=== PATIENT | female | born 1970 | race Caucasian/White ===

== ENCOUNTER 2018-01-20 05:33 | Inpatient (IN) | payer OTHER ==
[2018-01-20] MEDS ORDERED: NEOSTIGMINE 3 MG/3 ML SYRINGE (07:28)
[2018-01-20] MEDS ORDERED: ROCURONIUM 50 MG INJ (07:28)
[2018-01-20] MEDS ORDERED: LIDOCAINE 2% (SDV) 5 ML INJ (07:28)
[2018-01-20] MEDS ORDERED: SUCCINYLCHOLINE CHLORIDE 100 MG/5 ML SYG IV (07:28)
[2018-01-20] MEDS ORDERED: MEPERIDINE 100 MG INJ (07:28)
[2018-01-20] MEDS ORDERED: GLYCOPYRROLATE 0.4 MG INJ ×2 (07:28→07:38)
[2018-01-20] MEDS ORDERED: PROPOFOL 20 ML (07:28)
[2018-01-20] MEDS ORDERED: CEFAZOLIN 1 GM INJ (07:38)
[2018-01-20] MEDS ORDERED: ONDANSETRON 4 MG INJ (07:58)
[2018-01-20] MEDS ORDERED: METOCLOPRAMIDE 10 MG INJ (07:58)
[2018-01-20] MEDS ORDERED: DIPHENHYDRAMINE 50 MG INJ IV (08:30)
[2018-01-20] MEDS ORDERED: HYDROmorphONE 1 MG/5 ML IV SYRINGE IV (08:30)
[2018-01-20] MEDS ORDERED: LABETALOL HCL 20MG INJ IV (08:30)
[2018-01-20] MEDS ORDERED: hydrALAzine 20 MG INJ IV (08:30)
[2018-01-20] MEDS ORDERED: MIDAZOLAM 1 MG/ML 2 ML INJ IV (08:30)
[2018-01-20] MEDS ORDERED: MEPERIDINE 25 MG INJ IV (08:30)
[2018-01-20] MEDS ORDERED: FENTAnyl 50 MCG/ML VIAL IV ×3 (08:30)
[2018-01-20] MEDS ORDERED: OXYCODONE/ACETAMINOPHEN (5/325) TAB PO ×2 (08:30→15:00)
[2018-01-20] MEDS ORDERED: METOCLOPRAMIDE 10 MG INJ IV (08:30)
[2018-01-20] MEDS ORDERED: EPHEDrine SULFATE 50 MG/5 ML SYG IV (08:30)
[2018-01-20 08:55] LABS: IMMEDIATE SPIN CROSSMATCH 1 3
[2018-01-20] MEDS: ONDANSETRON 4 MG INJ IV (09:45)
[2018-01-20] MEDS: HYDROmorphONE 1 MG/5 ML IV SYRINGE IV ×2 (09:46→10:06)
[2018-01-20] MEDS: OXYCODONE/ACETAMINOPHEN (5/325) TAB PO ×4 (11:43→21:30)
[2018-01-21 05:15] LABS: ADD MAN DIFF? NO
[2018-01-21 05:20] LABS: BASOPHILS % 0.4 % (0.0-2.0); HEMATOCRIT 26.1 % (37.0-47.0); HEMOGLOBIN 7.6 g/dl (12.0-16.0); LYMPHOCYTES # 1.1 10^3/ul (0.8-2.9); LYMPHOCYTES % 13.2 % (15.0-51.0); MEAN CORPUSCULAR HEMOGLOBIN 20.9 pg (29.0-33.0); MEAN CORPUSCULAR HGB CONC 29.1 g/dl (32.0-37.0); MEAN CORPUSCULAR VOLUME 71.7 fl (82.0-101.0); MONOCYTE # 0.6 10^3/ul (0.3-0.9); MONOCYTES % 6.4 % (0.0-11.0); NEUTROPHIL # 6.8 10^3/ul (1.6-7.5); NEUTROPHILS % 79.5 % (39.0-77.0); PLATELET COUNT 312 10^3/UL (140-415); RED BLOOD COUNT 3.64 10^6/ul (4.20-5.40); RED CELL DISTRIBUTION WIDTH 18.8 % (11.5-14.5)
[2018-01-21 05:20] LABS: WHITE BLOOD COUNT 8.5 10^3/ul (4.8-10.8)
[2018-01-21] MEDS: BISACODYL 10 MG SUPP PR ×2 (06:31→15:24)
[2018-01-21] MEDS: MAGNESIUM HYDROXIDE 30ML CUP PO ×2 (06:31→15:25)
[2018-01-21 06:45] LABS: ALANINE AMINOTRANSFERASE 29 IU/L (13-69); ALBUMIN 3.2 g/dl (3.3-4.9); ALKALINE PHOSPHATASE 88 IU/L (42-121); ANION GAP 14 (8-16); ASPARTATE AMINO TRANSFERASE 38 IU/L (15-46); BILIRUBIN,INDIRECT 1.3 mg/dl (0-1.1); BILIRUBIN,TOTAL 1.3 mg/dl (0.2-1.3); BLOOD UREA NITROGEN 5 mg/dl (7-20); CARBON DIOXIDE 23 mmol/L (21-31); CHLORIDE 106 mmol/L (97-110); CREATININE 0.56 mg/dl (0.44-1.00); GLUCOSE 119 mg/dl (70-220); POTASSIUM 3.5 mmol/L (3.5-5.1); SODIUM 139 mmol/L (135-144); TOTAL PROTEIN 6.1 g/dl (6.1-8.1)
[2018-01-21] MEDS ORDERED: OXYCODONE/ACETAMINOPHEN (5/325) TAB PO ×3 (09:30)
[2018-01-21] MEDS: OXYCODONE/ACETAMINOPHEN (5/325) TAB PO ×4 (09:54→21:18)
[2018-01-21] MEDS: ONDANSETRON 4 MG INJ IV (15:25)
[2018-01-21 17:26] LABS: ADD MAN DIFF? NO
[2018-01-21 17:29] LABS: WHITE BLOOD COUNT 10.2 10^3/ul (4.8-10.8)
[2018-01-21 17:29] LABS: BASOPHILS % 0.2 % (0.0-2.0); HEMATOCRIT 30.5 % (37.0-47.0); HEMOGLOBIN 9.3 g/dl (12.0-16.0); LYMPHOCYTES # 0.6 10^3/ul (0.8-2.9); MEAN CORPUSCULAR HEMOGLOBIN 22.3 pg (29.0-33.0); MEAN CORPUSCULAR HGB CONC 30.5 g/dl (32.0-37.0); MEAN CORPUSCULAR VOLUME 73.1 fl (82.0-101.0); MEAN PLATELET VOLUME 9.2 fl (7.4-10.4); MONOCYTE # 0.6 10^3/ul (0.3-0.9); MONOCYTES % 5.8 % (0.0-11.0); NEUTROPHIL # 8.9 10^3/ul (1.6-7.5); NEUTROPHILS % 87.1 % (39.0-77.0); NUCLEATED RED BLOOD CELLS% 0.3 /100WBC (0.0-0.0); PLATELET COUNT 278 10^3/UL (140-415); RED BLOOD COUNT 4.17 10^6/ul (4.20-5.40); RED CELL DISTRIBUTION WIDTH 18.1 % (11.5-14.5)
[2018-01-22 05:38] LABS: ADD MAN DIFF? NO
[2018-01-22 06:05] LABS: WHITE BLOOD COUNT 10.2 10^3/ul (4.8-10.8)
[2018-01-22 06:05] LABS: BASOPHILS % 0.3 % (0.0-2.0); HEMATOCRIT 29.5 % (37.0-47.0); HEMOGLOBIN 8.9 g/dl (12.0-16.0); LYMPHOCYTES # 0.9 10^3/ul (0.8-2.9); LYMPHOCYTES % 8.7 % (15.0-51.0); MEAN CORPUSCULAR HEMOGLOBIN 22.2 pg (29.0-33.0); MEAN CORPUSCULAR HGB CONC 30.2 g/dl (32.0-37.0); MEAN CORPUSCULAR VOLUME 73.6 fl (82.0-101.0); MEAN PLATELET VOLUME 10.2 fl (7.4-10.4); MONOCYTE # 0.6 10^3/ul (0.3-0.9); MONOCYTES % 5.5 % (0.0-11.0); NEUTROPHIL # 8.7 10^3/ul (1.6-7.5); NEUTROPHILS % 85.1 % (39.0-77.0); NUCLEATED RED BLOOD CELLS% 0.2 /100WBC (0.0-0.0); PLATELET COUNT 298 10^3/UL (140-415); RED BLOOD COUNT 4.01 10^6/ul (4.20-5.40); RED CELL DISTRIBUTION WIDTH 18.6 % (11.5-14.5)
[2018-01-22] MEDS: OXYCODONE/ACETAMINOPHEN (5/325) TAB PO ×3 (08:13→18:46)
== END 2018-01-22 20:00 | disposition home or self-care (01) | DRG 743 ==
LOC: REC 05:33 → MS1 11:10
PROC: 0UT90ZL Resection of Uterus, Supracervical, Open Approach (ICD-10-PCS; principal; 2018-01-20 07:21)
PROC: 0UT70ZZ Resection of Bilateral Fallopian Tubes, Open Approach (ICD-10-PCS; 2018-01-20 07:21)
PROC: 0DNW0ZZ Release Peritoneum, Open Approach (ICD-10-PCS; 2018-01-20 07:21)
PROC: 30233N1 Transfusion of Nonautologous Red Blood Cells into Peripheral Vein, Percutaneous Approach (ICD-10-PCS; 2018-01-20 07:21)
DX: N92.0 Excessive and frequent menstruation with regular cycle (principal); D21.9 Benign neoplasm of connective and other soft tissue, unspecified; D50.9 Iron deficiency anemia, unspecified; E11.9 Type 2 diabetes mellitus without complications; G89.29 Other chronic pain; N73.6 Female pelvic peritoneal adhesions (postinfective); R10.2 Pelvic and perineal pain
CPT/HCPCS: 36430; 80053; 85025; 86850; 86900; 86901; 86920; 87086; 88305